=== PATIENT | male | born 2000 | race Hispanic/Latino ===

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

== ENCOUNTER 2025-02-15 17:10 | Emergency (ER) | payer SELFPAY ==
[~2025-02-15] VITALS: Ht 165.1 cm; Wt 70.3 kg
[2025-02-15] MEDS ORDERED: OSEL30CA PO (17:23)
--- NOTE | 2025-02-15 17:24 | ERN ---
ED Note History of Present Illness Stated Complaint: FLU SYMPTOMS Chief Complaint: Flu Symptoms Time Seen by MD: 17:15 Time Seen by Midlevel: 17:16 Dictation: 24-year-old male who presents to the emergency department for evaluation due to reported having a runny nose, fever, chills and a nonproductive cough. He states that he felt febrile but is not able to confirm an actual number. The patient states that multiple family members have a been of the household with similar symptoms which tested positive for the flu. He states that the onset of the symptoms was 2 days ago. Upon initial evaluation, the patient presents in no acute respiratory distress. Allergies: Coded Allergies: No Known Drug Allergies (Unverified Allergy, Unknown, 02/15/25) Emergency Care DANDY TENDER: None Past Medical History Past Medical History: No Pertinent History Surgical History: None PSYCH History: no pertinent psych hx Review of System Dictation Constitutional: Fever, chills ENT: Runny nose Respiratory: Nonproductive cough Initial Vital Sign VS Vital Signs Date Time Temp Pulse Resp B/P (MAP) Pulse Ox O2 Delivery O2 Flow Rate FiO2 02/15/25 17:12 97.5 110 20 127/71 100 Room Air 0 Physical Exam Dictation General: awake, alert, NAD Head/Face: Normocephalic, atraumatic Eyes: PERRL, EOMI ENT: Oral mucosa moist, bilateral nasal congestion Neck: Trachea midline, supple Cardiovascular: RRR, no edema Respiratory: Symmetrical, non-labored Abdomen: Soft, non-tender, non-distended, no guarding. Skin: Warm, dry, good turgor, no rash MS/Extremity: Pulses equal, no cyanosis, neurovascular intact, FROM Neuro: COAx4, GCS 15, steady gait, Psych: Normal behavior, mood, and affect normal ED Course ED Course Vital Signs Date Time Temp Pulse Resp B/P (MAP) Pulse Ox O2 Delivery O2 Flow Rate FiO2 02/15/25 17:12 97.5 110 20 127/71 100 Room Air 0 Medical Decision Making MDM MDM: Differential diagnosis: Viral illness, viral syndrome, influenza. Rationale: Tests considered and ordered secondary to shared decision making include: Previous outside records reviewed: Old ER visits. Risk of complication and/or morbidity or mortality of patient management: None Medications-Per medication reconciliation Need for hospitalization: Patient does not meet criteria for hospitalization. Need for emergency major/minor surgery: No There are no social concerns with this patient. Prescription drug management Prescriptions will include symptomatic care Patient's prior external medical records from other ER visits were reviewed by me as indicated. Prior testing and results from previous visits were reviewed. Prior tests were taken into account with medical decision making and resource utilization, independent historian/historians were used to obtain complete medical history. I independently interpreted the test that were performed, results were reviewed by me and considered findings on radiology if ordered. Medical management and examination interpretation discussions were had by me with other qualified healthcare professionals as indicated for the patient's care. An in-depth discussion was done with the patient in regards around the emergency type him not having any need to perform any swabs due to the presentation of several family members with the flu at home. Therefore, the patient will be treated as a flu for which he verbalized understanding and agrees to the treatment plan of care. DX & DISP Disposition: Discharge Departure Impression: Primary Impression: Influenza Condition: Stable Scripts Oseltamivir Phosphate (Tamiflu) 30 Mg Capsule 1 CAP PO BID for 5 Days, #10 CAP 0 Refills Prov: MELY CORONADO 02/15/25 Referrals: SELF,REFERRAL (PCP) Time of Disposition: 17:23 MELY CORONADO Feb 15, 2025 17:24
[2025-02-15 18:00] VITALS: BP 140/92; PULSE 82; RESP 17; TEMP 98.4; O2SAT 99
== END 2025-02-15 18:14 | disposition home or self-care (01) ==
LOC: EDH 17:10
DX: J11.1 Influenza due to unidentified influenza virus with other respiratory manifestations (principal)
CPT/HCPCS: 99283